=== PATIENT | male | born 1995 | race Caucasian/White ===

== ENCOUNTER 2017-01-01 22:16 | Emergency (ER) | payer OTHER, BC ==
[2017-01-01 22:23] VITALS: RESP 16; TEMP 98.6; O2SAT 95
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
[2017-01-01] MEDS ORDERED: ACETAMINOPHEN 500 MG TAB PO ONE (23:26)
[2017-01-01 23:55] VITALS: BP 127/75; PULSE 85
== END 2017-01-01 23:57 | disposition home or self-care (01) ==
DX: S09.90XA Unspecified injury of head, initial encounter (principal); V49.40XA Driver injured in collision with unspecified motor vehicles in traffic accident, initial encounter; Y92.410 Unspecified street and highway as the place of occurrence of the external cause; Y99.8 Other external cause status; Y93.89 Activity, other specified

== ENCOUNTER 2017-08-14 22:08 | Emergency (ER) | payer BC, OTHER ==
[2017-08-14 22:17] VITALS: BP 144/78; PULSE 55; TEMP 99.5; O2SAT 98
--- NOTE | 2017-08-14 22:52 | EDPHY ---
H & P Stated Complaint: Pt is having a pressure and fullness in bilar ears and neck Time Seen by Provider: 08/14/17 22:39 HPI/ROS: Chief Complaint: Ear and neck pressure HPI: 22-year-old male presenting with 1 day of a dull pressure in his left ear , head and neck. Pressure is about a 7/10 but it is not painful. It is not reproducible. He has not had any hearing changes. No fevers or chills. No vision changes. No rash. No stiff neck. No difficulty swallowing or sore throat. Did have some bronchitis and upper respiratory symptoms a couple weeks ago. No increasing nasal discharge. No cough. No chest pain or shortness of breath. There are no aggravating or alleviating factors. No fevers or chills. ROS: 10 point Review of Systems is negative except as noted in the HPI. PMH: Denies Social History: No smoking, no alcohol, no recreational drug use Family History: non-contributory Physical Exam: Gen: Awake, Alert, No Distress HEENT: Ears: Slight effusion of his left ear, no erythema Nose: no rhinorrhea Eyes: PERRLA, EOMI Mouth: Moist mucosa normal oropharynx, Neck: Supple, no JVD, no tenderness Chest: nontender, lungs clear to auscultation Heart: S1, S2 normal, no murmur Abd: Soft, non-tender, no guarding Back: no CVA tenderness, no midline tenderness Ext: no edema, non-tender Skin: no rash Neuro: CN II-XII intact, Sensation grossly intact, Strength 5/5 in bilateral upper and lower extremities - Personal History Current Tetanus/Diphtheria Vaccine: No Current Tetanus Diphtheria and Acellular Pertussis (TDAP): No - Medical/Surgical History Hx Asthma: No Hx Chronic Respiratory Disease: No Hx Diabetes: No Hx Cardiac Disease: No Hx Renal Disease: No Hx Cirrhosis: No Hx Alcoholism: No Hx HIV/AIDS: No Hx Splenectomy or Spleen Trauma: No Other PMH: PSHx: denies. PMHx: "liver issues"; heart murmur - Social History Smoking Status: Never smoked Constitutional: Initial Vital Signs Temperature (C) 37.5 C 08/14/17 22:15 Heart Rate 55 L 08/14/17 22:15 Respiratory Rate 16 08/14/17 22:15 Blood Pressure 144/78 H 08/14/17 22:15 O2 Sat (%) 98 08/14/17 22:15 O2 Delivery Mode Room Air Allergies/Adverse Reactions: No Known Allergies Allergy (Verified 08/14/17 22:17) Home Medications: Medication Instructions Recorded NK [No Known Home Meds] 01/01/17 Medical Decision Making ED Course/Re-evaluation: 22-year-old male presenting with pressure in his left ear head and neck. Is no meningismus. May be a slight effusion is left ear but no erythema. His oropharynx is clear neck. He has no reproducible tenderness. No lymphadenopathy. He has full range of motion without any pain. Remainder of his physical exam is completely unremarkable. He is otherwise very well appearing. No findings suggestive of otitis media, pharyngitis, the abscess, skin rash, intracranial process. He has had a recent bronchitis with some sinus symptoms and suggest that he could have some pressure in his left ear from a blocked eustachian tube. I have recommended oral decongestants. Alternate Tylenol and ibuprofen as needed. Follow up with [facility] in 2- 3 days, return for worsening. Departure - Departure Disposition: Home, Routine, Self-Care Clinical Impression: Viral URI Condition: Good Instructions: Upper Respiratory Infection (ED) Additional Instructions: You may use [id number] decongestants to treat your ear pressure. Alternate acetaminophen (1000 mg) with ibuprofen (400 mg) every 4 hours as needed for fevers, chills, aches or pains. Follow up with [facility] in 3-4 days if symptoms are not improving. Return to the emergency department for increasing fever, chills, worsening pain , vomiting, or any other concerns. Referrals: [facility],. [Clinic] - As per Instructions
[2017-08-14 23:02] VITALS: RESP 14
== END 2017-08-14 23:01 | disposition home or self-care (01) ==
DX: J06.9 Acute upper respiratory infection, unspecified (principal)